=== PATIENT | female | born 1990 | race Caucasian/White ===

== ENCOUNTER → 2019-02-28 | Outpatient (CLI) | payer OTHER ==
--- NOTE | 2019-02-28 15:16 | REP ---
Two-view chest: 02/28/2019. Indication: Cough. Comparison: None. Findings: The lungs are clear. There is no pleural effusion or pneumothorax. The cardiomediastinal silhouette is unremarkable. Impression: No acute cardiopulmonary process. Electronically Signed by Eldon Farmer DO 02/28/2019 03:07 P
== END ==
LOC: M WUC 14:39
PROVIDERS: ATTEND Physician Assistant
DX: R05 Cough (principal)

== ENCOUNTER → 2019-10-28 | Outpatient (CLI) | payer OTHER ==
--- NOTE | 2019-11-26 10:38 | REP ---
LEFT FOOT SERIES: CLINICAL: Pain without trauma. TECHNIQUE: AP, lateral, bilateral oblique views of the left foot. FINDINGS: The osseous structures, joint spaces and surrounding soft tissues appear normal. Normal acute fracture or dislocation. No subcutaneous emphysema or foreign body. No degenerative changes. IMPRESSION: Normal left foot radiograph series. MTDD
== END ==
LOC: M WUC 15:17
PROVIDERS: ATTEND Nurse Practitioner Family
DX: M79.672 Pain in left foot (principal)

== ENCOUNTER → 2020-01-02 | Outpatient (CLI) | payer OTHER ==
--- NOTE | 2020-01-02 13:58 | REP ---
INDICATION: PAIN IN LT ANKLE/JOINT OF LT FOOT ? STRESS FX. COMPARISON: Foot radiographs 10/28/2019. TECHNIQUE: Multiple sequences are obtained in the axial, coronal and sagittal planes. FINDINGS: The Achilles, anterior tibial, posterior tibial, flexor hallucis longus, flexor digitorum longus and peroneal tendons are all intact without significant tenosynovitis. The anterior and posterior talofibular, calcaneofibular and deltoid ligaments appear intact. Plantar tendon appears intact. There is no plantar fasciitis. Sinus tarsi appears unremarkable. A lobulated septated cystic structure is seen anterior to the distal tibia and tibiotalar joint, measuring approximately 3.0 x 0.8 x 1.0 cm. There is a tiny amount of scattered joint fluid.. The cartilaginous surfaces are smooth. No osteochondral defect is seen at the tibiotalar joint. There is no bone marrow edema or occult fracture. IMPRESSION: A lobulated septated cystic structure is seen anterior to the distal tibia and tibiotalar joint, measuring approximately 3.0 x 0.8 x 1.0 cm. <Electronically signed by Aníbal White > 01/02/20 [id number]
== END ==
LOC: M PLARAD 08:57
PROVIDERS: ATTEND Orthopaedic Surgery
DX: M79.672 Pain in left foot (principal)

== ENCOUNTER → 2020-07-30 | Outpatient (REF) | payer OTHER ==
[2020-07-30 17:53] LABS: FREE T4 0.88 NG/DL (0.76-1.46); PROLACTIN 6.9 NG/ML; THYROID STIMULATING HORMONE 2.19 uIU/ML (0.358-3.740)
[2020-07-30 18:32] LABS: HEMOGLOBIN A1c 5.3 %
[2020-08-02 12:07] LABS: TESTOSTERONE FREE (DIRECT) 4.9 pg/mL (0.0-4.2)
== END ==
LOC: M PLALAB 14:40
PROVIDERS: ATTEND Obstetrics & Gynecology
DX: N91.5 Oligomenorrhea, unspecified (principal)

== ENCOUNTER → 2020-07-30 | Outpatient (REF) | payer OTHER | LOC: M SFHCWAGY 19:22 | PROVIDERS: ATTEND Obstetrics & Gynecology | DX: Z12.4 Encounter for screening for malignant neoplasm of cervix (principal) ==

== ENCOUNTER → 2020-08-25 | Outpatient (CLI) | payer OTHER ==
--- NOTE | 2020-08-25 09:08 | REP ---
INDICATION: N91.5 OLIGOMENORRHEA. COMPARISON: None. TECHNIQUE: Transvesical and transvaginal scanning FINDINGS: The uterus measures 9.7 x 2.8 x 4.1 cm. The parenchymal echo pattern is within normal limits. The endometrial echo complex is unremarkable in appearance measuring 7 mm in its greatest thickness. The right ovary measures 3.6 x 3.1 x 3.2 cm with an RI 0.39. Within the right ovary there is a 3 cm sized anechoic structure which exhibits posterior wall enhancement and increased through transmission. This is without septations or papillary projections. Left ovary measures 2.3 x 1.9 x 1.5 cm and is within normal limits with an RI 0.50. There is no free fluid. Incidental note is made of nabothian cyst. Urinary bladder measures 7 x 7 x 8 cm. IMPRESSION: Simple right ovarian cyst as described above. <Electronically signed by Jericho Davison > 08/25/20 [id number]
== END ==
LOC: M WHC 07:27
PROVIDERS: ATTEND Obstetrics & Gynecology
DX: N91.5 Oligomenorrhea, unspecified (principal)

== ENCOUNTER → 2023-07-12 | Outpatient (REF) | payer OTHER | LOC: M SFHCWAGY 10:07 | PROVIDERS: ATTEND Nurse Practitioner Family | DX: Z12.4 Encounter for screening for malignant neoplasm of cervix (principal); Z01.419 Encounter for gynecological examination (general) (routine) without abnormal findings; Z77.9 Other contact with and (suspected) exposures hazardous to health ==

== ENCOUNTER → 2023-10-02 | Outpatient (CLI) | payer OTHER ==
[2023-10-02 16:13] LABS: THYROID STIMULATING HORMONE 1.93 uIU/ML (0.55-4.78)
[2023-10-02 16:14] LABS: PROLACTIN 5.46 NG/ML
[2023-10-02 16:42] LABS: HEMOGLOBIN A1c 5.3 % (4.0-6.0)
[2023-10-04 01:08] LABS: DEHYDROEPIANDROSTERONE SULFATE 364 mcg/dL (19-237)
== END ==
LOC: M PLALAB 12:22
PROVIDERS: ATTEND Obstetrics & Gynecology
DX: N97.9 Female infertility, unspecified (principal)

== ENCOUNTER → 2023-10-30 | Outpatient (CLI) | payer OTHER ==
[~2023-10-30] MED LIST: ISOVUE-300 61% 100ML VIAL As Ordered ONE; ISOVUE-370 76% 100ML VIAL As Ordered ONE
== END ==
LOC: M RADPRO 12:05
PROVIDERS: ATTEND Obstetrics & Gynecology
DX: N97.9 Female infertility, unspecified (principal)
CPT/HCPCS: 58340; 74740; Q9967

== ENCOUNTER → 2023-11-09 | Outpatient (CLI) | payer OTHER | LOC: M WHC 11:29 | PROVIDERS: ATTEND Obstetrics & Gynecology | DX: N97.9 Female infertility, unspecified (principal); N83.202 Unspecified ovarian cyst, left side; N88.8 Other specified noninflammatory disorders of cervix uteri ==

== ENCOUNTER → 2023-11-23 | Outpatient (CLI) | payer OTHER ==
[2023-11-23 20:09] LABS: ESTRADIOL 27.6 PG/ML; FOLLICLE STIMULATING HORMONE 6.7 mIU/ML; LUTEINIZING HORMONE 2.3 mIU/ML
== END ==
LOC: M PLALAB 13:10
PROVIDERS: ATTEND Obstetrics & Gynecology
DX: N97.9 Female infertility, unspecified (principal)

== ENCOUNTER → 2025-02-05 | Outpatient (CLI) | payer OTHER ==
[2025-02-05 15:26] LABS: LUTEINIZING HORMONE 2.5 mIU/ML
[2025-02-05 15:27] LABS: ESTRADIOL 21.6 PG/ML
[2025-02-05 17:42] LABS: ESTIMATED AVERAGE GLUCOSE 105.0 MG/DL (60-110)
[2025-02-08 03:36] LABS: DEHYDROEPIANDROSTERONE SULFATE 316 mcg/dL (19-237)
== END ==
LOC: M PLALAB 12:23
PROVIDERS: ATTEND Obstetrics & Gynecology
DX: N97.9 Female infertility, unspecified (principal)